=== PATIENT | male | born 2000 | race Caucasian/White ===

== ENCOUNTER 2025-01-31 11:27 | Emergency (ER) | payer MEDICAID, SELFPAY ==
[2025-01-31 11:47] VITALS: BP 118/77; PULSE 82; RESP 18; TEMP 36.9; O2SAT 97; BMI 19.5
--- NOTE | 2025-01-31 11:48 | PD.EDADULT ---
ED General RME/HPI General Chief complaint: Nausea/Vomiting/Diarrhea Stated complaint: ALCOHOL POISONING Time Seen by Provider: 01/31/25 11:45 Arrival date/time: 01/31/25 11:27 CC: Low center abdominal pain nausea vomiting HPI patient had a large amount of alcohol last night, has been throwing up since 2 AM, now he has low center abdominal pain with mild nausea. Patient admits he has not had alcohol in a long time. Patient is awake alert oriented nontoxic-appearing not in any acute distress responding all questions without complication denies chest pain shortness of breath difficulty breathing or fever. Related Data Previous Rx's ?Medication ?Instructions ?Recorded ondansetron 4 mg disintegrating 4 mg PO Q8H #10 tabs 01/31/25 tablet Allergies Allergy/AdvReac Type Severity Reaction Status Date / Time No Known Allergies Allergy Verified 01/31/25 11:30 Review of Systems Review of Systems Narrative Review of Systems: GEN: No fever, no chills, no weight loss EYES: No discharge, no visual changes, no pain HEENT: No ear pain, no congestion, no sore throat PULM: No shortness of breath, no cough, no congestion CV: No chest pain, no dyspnea on exertion, no palpitations GI: + nausea, + vomiting, no diarrhea, no pain, no constipation : No frequency, no urgency, no dysuria MUSC/SKEL: No joint pain, no back pain SKIN: No rash PSYCH: No hallucinations, no depression HEME/LYMPH: No easy bleeding or bruising tendencies NEURO: No weakness, no headache Past Medical History Social History SMOKING STATUS: Current every day smoker ED Exam Narrative Physical exam: [General: Not in any acute distress Head normocephalic HEENT: Within acceptable limits Neck is supple nontender Chest equal chest rise nontender to palpation Respiratory: Clear to auscultation no wheezes crackles or rubs CV: Rate rhythm is regular no murmurs rubs or clicks Abdomen is flat, soft nontender no masses positive bowel sounds all 4 quadrants Back: No CVA tenderness no spinous process tenderness from cervical spine thoracic and lumbar spine Skin: Intact no petechiae rash induration ulceration or crepitus Extremities: Moving all extremity against resistance cap refill less than 2 seconds neurosensory intact Neuro: Awake alert oriented x3 Glascow coma 15 no focal deficits] Course Quality Measures none Orders Category Date Time Status Fluid challenge administration NOW Care 01/31/25 11:46 Active Ondansetron Odt [Zofran Odt] Med 01/31/25 11:46 Discontinued 4 mg PO X1 ONE Vital Signs Vital signs: Vital Signs Temperature 98.4 F 01/31/25 11:47 Pulse Rate 82 01/31/25 11:47 Respiratory Rate 18 01/31/25 11:47 Blood Pressure 118/77 01/31/25 11:47 Pulse Oximetry (%) 97 01/31/25 11:47 Oxygen Delivery Method Room Air 01/31/25 11:47 [facility] Patient data External records reviewed:: [facility] previous records Clinical information provided by:: patient Social determinants that could affect healthcare access:: none Patient has the following chronic illnesses:: None How is presenting disease/condition affected by chronic disease/condition?: uneffected by Evaluation data The following diagnostics were reviewed and interpreted by me:: other (specify) (None) Lab and/or radiology exams considered but not ordered:: None Interpretation Summary: After ondansetron the patient is tolerating p.o. fluids well without any nausea or vomiting. Patient is awake alert with stable vital signs at this time comfortable discharging the patient home. Patient is in agreement with this plan. Medications Medications considered but not ordered:: None Medication administrations:: Medication Administration History Discontinued Medications Ondansetron HCl (Ondansetron Odt 4 Mg Tabrap) 4 mg PO X1 ONE; Protocol Stop: 01/31/25 11:47 Last Admin: 01/31/25 11:53 Dose: 4 mg Documented By: OA None Consultations Consultation(s) initiated? (list below): No Diagnosis Differential Diagnosis ED Complaint MDM: Dehydration alcohol induced nausea and vomiting scribing Most likely diagnosis given after review of the tests above:: Nausea vomiting Admission Indicated Admission indicated?: not indicated Explain why admission is indicated or not indicated:: Stable for discharge Admission Request Was there a request for admission?: No Disposition Plan Disposition Plan: Discharge Discharge Attestation Discharge Attestation: The patient and all family members were given an opportunity to ask questions and understood the discharge instructions. Discharge instructions specifically effects, indications for sooner follow up or return to the emergency department, and the expected course of current diagnosis. Patient condition: Stable Medical Decision Making Differential Diagnosis Differential Diagnosis: Dehydration alcohol induced nausea and vomiting scribing Discharge Plan Plan Patient Disposition: HOME (Self Care) Patient condition on transfer: Stable Prescriptions/Referrals Prescriptions/Med Rec: New ondansetron 4 mg tablet,disintegrating 4 mg PO Q8H Qty: 10 0RF Referrals: Chito Gabriel MD [Physician] - In 1 week No Primary/Family,Physician [Primary Care Provider] - In 1 week Problem List Clinical Impression: Nausea & vomiting Patient/Caregiver Discharge Instructions Education Materials: ED Vomiting and Diarrhea ... Additional Instructions: Take the medication as needed to stop the nausea, continue to drink electrolyte replacement. Avoid all alcohol for the next 10 to 14 days if there is worsening of symptoms in spite of the medications return to the emergency room immediately for further evaluation. 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
[2025-01-31] MEDS: ONDANSETRON ODT 4 MG TABRAP PO (11:53)
== END 2025-01-31 12:26 | disposition home or self-care (01) ==
PROVIDERS: Emergency Provider Emergency Medicine
DX: R11.2 Nausea with vomiting, unspecified (principal)
CPT/HCPCS: 99282; Q0162